=== PATIENT | female | born 1950 | race Caucasian/White ===

== ENCOUNTER 2024-01-22 13:48 | Emergency (ER) | payer MEDICARE, OTHER ==
[~2024-01-22] VITALS: Ht 165.1 cm; Wt 92.5 kg
[2024-01-22 14:50] VITALS: BP 125/63; TEMP 97.9
[2024-01-22] MEDS ORDERED: LIDOCAINE HCL/PF 1% 30 ML SDV ONE (15:29)
[2024-01-22] MEDS ORDERED: CEPH500C2 PO (15:34)
[2024-01-22] MEDS ORDERED: LIDOCAINE 2% 20 ML MDV ONE (15:36)
[2024-01-22] MEDS: LIDOCAINE 2% 20 ML MDV TP ONE (15:38)
[2024-01-22 16:10] VITALS: O2SAT 99
== END 2024-01-22 16:10 | disposition home or self-care (01) ==
LOC: ER 13:51
DX: L02.611 Cutaneous abscess of right foot (principal); I10 Essential (primary) hypertension; E11.9 Type 2 diabetes mellitus without complications
CPT/HCPCS: 10140; 99284; J3490 ×2